=== PATIENT | male | born 1995 | race Two or more races ===

== ENCOUNTER 2020-09-12 15:19 | Outpatient (CLI) | payer OTHER | END 2020-09-12 16:00 | disposition home or self-care (01) | LOC: OFIC 805 15:19 | PROVIDERS: ATTEND Otolaryngology Otology & Neurotology | DX: J34.2 Deviated nasal septum (principal); H61.23 Impacted cerumen, bilateral; H93.8X3 Other specified disorders of ear, bilateral ==